=== PATIENT | male | born 1995 | race Hispanic/Latino ===

== ENCOUNTER 2017-06-26 00:44 | Emergency (ER) | payer OTHER ==
[~2017-06-26] VITALS: Ht 167.6 cm; Wt 86.2 kg
== END 2017-06-26 03:45 | disposition home or self-care (01) ==
LOC: ED 00:44
DX: S70.12XA Contusion of left thigh, initial encounter (principal); S70.11XA Contusion of right thigh, initial encounter; S00.03XA Contusion of scalp, initial encounter; V43.52XA Car driver injured in collision with other type car in traffic accident, initial encounter; W22.11XA Striking against or struck by driver side automobile airbag, initial encounter
CPT/HCPCS: 70450; 70486; 71260; 72125; 73552; 74177; 80053; 81001; 82150; 82550; 85025; 86850; 86900; 86901; 99284; G0480; Q9967